=== PATIENT | male | born 1995 | race Caucasian/White ===

== ENCOUNTER → 2024-05-04 12:20 | Outpatient (BNVA) | payer OTHER, SELFPAY | PROVIDERS: PCP Pediatrics; Visit Provider Physician Assistant Medical | DX: T15.02XA Foreign body in cornea, left eye, initial encounter (principal); W44.8XXA Other foreign body entering into or through a natural orifice, initial encounter; Z23 Encounter for immunization | CPT/HCPCS: 90715; 99203 ==